=== PATIENT | female | born 1995 | race Caucasian/White ===

== ENCOUNTER 2018-01-11 21:28 | Emergency (ER) | payer OTHER ==
[~2018-01-11] VITALS: Ht 167.6 cm; Wt 75.0 kg
[2018-01-11 21:38] VITALS: BP 154/82; PULSE 103; RESP 18; TEMP 99; O2SAT 99
--- NOTE | 2018-01-12 00:04 | PD ---
HPI Chief Complaint: Advertising Analyst Problem/Complaint Time Seen by Provider: 23:39 Travel History International Travel<30 days: No Contact w/Intl Traveler<30days: No Traveled to known affect area: No History of Present Illness HPI The patient was seen and examined in the presence of the nurse. This patient reports that she is 5 weeks using her menstrual dates. She has missed one menstrual period. She took 4 tests at home, all positive. About 12 hours ago she developed some pelvic cramping and some vaginal spotting. She has never been before. Symptom severity is moderate. No alleviating factors. Duration 12 hours. No exacerbating factors. PFSH Past Medical History Diminished Hearing: No Gastrointestinal Disorders: Yes (gastroparsis, fozias danlos #3) Tetanus Vaccination: < 5 Years Influenza Vaccination: No ?: LMP: 12/05/2017 Past Surgical History Surgical History: No Previous Surgery Social History Alcohol Use: No Tobacco Use: No Substance Use: No Allergies-Medications (Allergen,Severity, Reaction): Coded Allergies: No Known Allergies (Unverified , 01/11/18) Review of Systems General / Constitutional: No: Fever Eyes: No: Visual changes HENT: No: Headaches Cardiovascular: No: Chest Pain or Discomfort Respiratory: No: Shortness of Breath Gastrointestinal: No: Abdominal Pain Genitourinary: Positive: Pelvic Pain, Vaginal Bleeding, No: Dysuria Musculoskeletal: No: Pain Skin: No Rash Neurologic: No: Weakness Psychiatric: No: Depression Endocrine: No: Polydipsia Hematologic/Lymphatic: No: Easy Bruising Physical Exam Narrative GENERAL: Well-nourished, well-developed patient in no apparent distress. SKIN: Focused skin assessment reveals no rash and nodules. Skin is Warm and dry. HEAD: Atraumatic. Normocephalic. EYES: Pupils equal and round. No scleral icterus. No injection or drainage. ENT: No nasal bleeding or discharge. Mucous membranes pink and moist. NECK: Trachea midline. No JVD. CARDIOVASCULAR: Regular rate and rhythm. No murmur appreciated. RESPIRATORY: No accessory muscle use. Clear to auscultation. Breath sounds equal bilaterally. GASTROINTESTINAL: Abdomen soft, non-tender, nondistended. Hepatic and splenic margins not palpable. MUSCULOSKELETAL: No obvious deformities. No clubbing. No cyanosis. No edema. NEUROLOGICAL: Awake and alert. No obvious cranial nerve deficits. Motor grossly within normal limits. Normal speech. PSYCHIATRIC: Appropriate mood and affect; insight and judgment normal. Pelvic: Cervix is closed, no motion tenderness. No discharge in the vault. There is a scant amount of blood in the vault. No adnexal mass or tenderness Data Data Last Documented VS Vital Signs Date Time Temp Pulse Resp B/P (MAP) Pulse Ox O2 Delivery O2 Flow Rate FiO2 01/11/18 21:38 99.0 103 18 154/82 (106) 99 Orders Orders Iv Access Insert/Monitor (01/11/18 23:56) Complete Blood Count With Diff (01/11/18 23:56) Beta Hcg (Quant/Titer) (01/11/18 23:56) Complete Rh (01/11/18 23:56) Rhogam Only (01/12/18 00:42) Blood Product Administration (01/12/18 00:42) Sodium Chlor 0.9% 250 Ml Inj (Ns 250 Ml (01/12/18 00:45) Labs Laboratory Tests Test 01/12/18 00:10 White Blood Count 10.9 TH/MM3 Red Blood Count 5.04 MIL/MM3 Hemoglobin 15.0 GM/DL Hematocrit 43.8 % Mean Corpuscular Volume 87.0 FL Mean Corpuscular Hemoglobin 29.7 PG Mean Corpuscular Hemoglobin Concent 34.2 % Red Cell Distribution Width 13.2 % Platelet Count 317 TH/MM3 Mean Platelet Volume 8.0 FL Neutrophils (%) (Auto) 59.4 % Lymphocytes (%) (Auto) 30.6 % Monocytes (%) (Auto) 7.6 % Eosinophils (%) (Auto) 1.4 % Basophils (%) (Auto) 1.0 % Neutrophils # (Auto) 6.5 TH/MM3 Lymphocytes # (Auto) 3.3 TH/MM3 Monocytes # (Auto) 0.8 TH/MM3 Eosinophils # (Auto) 0.2 TH/MM3 Basophils # (Auto) 0.1 TH/MM3 CBC Comment DIFF FINAL Differential Comment Human Chorionic Gonadotropin, Quant 21 MIU/ML [facility] Medical Decision Making Medical Screen Exam Complete: Yes Emergency Medical Condition: Yes Medical Record Reviewed: Yes Differential Diagnosis Ectopic , threatened , miscarriage Narrative Course I have reviewed the patient's electronic medical record. IV placed and labs sent. CBC is normal Beta hCG is 21 She is a negative and I have ordered a dose of RhoGam She has a soft benign abdomen and clinically stable Recommending a repeat beta hCG in 2-3 days Advised her to call her OB physician that she has an appointment coming up with but has not seen. If they do not want to work her and then she will come back here for repeat Diagnosis Primary Impression: Threatened in early Additional Instructions: Get a repeat beta hCG in 2-3 days. Med/Other Pt SpecificInfo: Other Disposition: 01 DISCHARGE HOME Condition: Stable Milton Juarez MD Jan 12, 2018 00:04
[2018-01-12 00:29] LABS: AUTOMATED NEUTROPHIL # 6.5 TH/MM3 (1.8-7.7); BASOPHIL # 0.1 TH/MM3 (0-0.2); EOSINOPHIL # 0.2 TH/MM3 (0-0.4); EOSINOPHIL % 1.4 % (0.0-4.0); HEMATOCRIT 43.8 % (35.0-46.0); LYMPH % 30.6 % (9.0-44.0); LYMPHOCYTE # 3.3 TH/MM3 (1.0-4.8); MEAN CORPUSCULAR HEMOGLOBIN 29.7 PG (27.0-34.0); MEAN CORPUSCULAR HGB CONC 34.2 % (32.0-36.0); MONO % 7.6 % (0.0-8.0); MONOCYTE # 0.8 TH/MM3 (0-0.9); NEUT % 59.4 % (16.0-70.0); PLATELET COUNT 317 TH/MM3 (150-450); RED BLOOD COUNT 5.04 MIL/MM3 (4.00-5.30); RED CELL DISTRIBUTION WIDTH 13.2 % (11.6-17.2); WHITE BLOOD COUNT 10.9 TH/MM3 (4.0-11.0)
[2018-01-12] MEDS ORDERED: SODIUM CHLOR 0.9% 250 ML INJ 250 ML IV ONE (00:45)
[2018-01-12 01:35] VITALS: BP 121/73; PULSE 89; RESP 20; TEMP 98.4; O2SAT 99
== END 2018-01-12 02:19 | disposition home or self-care (01) ==
LOC: NEPD 21:28
DX: O20.0 Threatened abortion (principal); Z3A.01 Less than 8 weeks gestation of pregnancy
CPT/HCPCS: 84702; 85025; 86901; 90384; 96372; J2790